=== PATIENT | male | born 1995 | race African-American/Black ===

== ENCOUNTER 2017-02-18 01:48 | Emergency (ER) | payer OTHER ==
[~2017-02-18] VITALS: Ht 190.5 cm; Wt 118.2 kg
[~2017-02-18 01:48] MED LIST: FLEXERIL 1010 MG/TAB PO; IBU800 M1 PO
[2017-02-18 01:51] VITALS: BP 145/82; TEMP 97.4
[2017-02-18] MEDS ORDERED: NYQUIL GENERIC PO (02:14)
[2017-02-18 03:12] VITALS: PULSE 72
== END 2017-02-18 03:13 | disposition home or self-care (01) ==
LOC: COL.ER 01:48
DX: S09.90XA Unspecified injury of head, initial encounter (principal); G43.909 Migraine, unspecified, not intractable, without status migrainosus; Z98.890 Other specified postprocedural states; W21.81XA Striking against or struck by football helmet, initial encounter; Y93.61 Activity, american tackle football; Y92.321 Football field as the place of occurrence of the external cause
CPT/HCPCS: J1885